=== PATIENT | female | born 1955 | race Two or more races ===

== ENCOUNTER 2023-09-11 14:34 | Emergency (ER) | payer MEDICAID, OTHER ==
[~2023-09-11] VITALS: Ht 162.6 cm; Wt 47.0 kg
[2023-09-11 14:34] VITALS: BP 121/47; PULSE 66; RESP 18; TEMP 97.4; O2SAT 97
[~2023-09-11 14:34] MED LIST: CLOT21CR7 VG; NITR100C6 PO; NO HOME MEDS; PHEN-716 PO
[2023-09-11 14:58] LABS: BILIRUBIN,URINE NEGATIVE (Neg); CLARITY,URINE CLEAR (Clear); COLOR,URINE YELLOW (Yellow); GLUCOSE, URINE NEGATIVE (Neg); KETONES,URINE NEGATIVE (Neg); LEUKOCYTE ESTERASE ,URINE NEGATIVE (Neg); NITRITES, URINE NEGATIVE (Neg); OCCULT BLOOD,URINE NEGATIVE (Neg); PH,URINE 6.5 (4.8-8.0); PROTEIN,URINE NEGATIVE (Neg); UROBILINOGEN,URINE 0.2 E.U/dL (0.2-1.0)
[2023-09-11 15:03] LABS: UA COLLECTION TYPE CLN CATCH MIDSTREAM
[2023-09-11] MEDS ORDERED: CLOT15CR73 TOP (16:09)
[2023-09-11] MEDS ORDERED: SULF1TAB45 PO (16:09)
[2023-09-11] MEDS ORDERED: PHEN-824 PO (16:09)
== END 2023-09-11 16:42 | disposition home or self-care (01) ==
LOC: ER 14:34
DX: N39.0 Urinary tract infection, site not specified (principal); N76.0 Acute vaginitis; Z79.899 Other long term (current) drug therapy; Z79.2 Long term (current) use of antibiotics
CPT/HCPCS: 81003; 99283